=== PATIENT | female | born 1960 | race Caucasian/White ===

== ENCOUNTER → 2017-06-28 | Outpatient (CLI) | payer OTHER ==
[~2017-06-28] MED LIST: CIPR500T87 PO; GADOBUTROL 10 MMOL/10 ML VIAL ONE; HYDR25TA6 PO; LISI-167 PO; NICO-487 TD; PANT40TA3 PO; SIMV40TA PO
== END | disposition home or self-care (01) ==
LOC: CFH 14:35
PROVIDERS: ATTEND Registered Nurse
DX: I63.9 Cerebral infarction, unspecified (principal); R90.82 White matter disease, unspecified; Q28.3 Other malformations of cerebral vessels; I67.82 Cerebral ischemia
CPT/HCPCS: 70544; 70549; 70553; 82565; A9585

== ENCOUNTER → 2017-10-12 | Outpatient (CLI) | payer OTHER ==
[~2017-10-12] MED LIST changes: -GADOBUTROL 10 MMOL/10 ML VIAL ONE; +OMNIPAQUE 350 MG/ML, 100ML BOTTLE ONE
== END | disposition home or self-care (01) ==
LOC: CFH 10:05
PROVIDERS: ATTEND Registered Nurse
DX: E78.5 Hyperlipidemia, unspecified (principal)
CPT/HCPCS: 70498; 82565; Q9967

== ENCOUNTER → 2019-03-13 | Outpatient (CLI) | payer OTHER ==
[~2019-03-13] MED LIST changes: -OMNIPAQUE 350 MG/ML, 100ML BOTTLE ONE
== END | disposition home or self-care (01) ==
LOC: CFH 12:44
PROVIDERS: ATTEND Family Medicine
DX: R92.1 Mammographic calcification found on diagnostic imaging of breast (principal); Z98.82 Breast implant status
CPT/HCPCS: 76642; 77066; G0279